=== PATIENT | female | born 1990 | race Native Hawaiian/Other Pacific Islander ===

== ENCOUNTER 2017-07-30 07:49 | Emergency (ER) | payer SELFPAY ==
[~2017-07-30] VITALS: Ht 160 cm; Wt 90.7 kg
[~2017-07-30 07:49] MED LIST: DOCU100C37 PO; IBUP-1773 PO; ONDA4TAB11 PO; PNV91TAB3 PO
--- OUTSIDE RECORDS SUMMARY | 2017-07-30 07:55 | XMS REPORT | Continuity of Care Document ---
Author Author [facility] Organization [facility] Address Unknown Phone Unavailable Allergies Active Description Code Type Severity Reaction Onset Reported/Identified Relationship to Patient Clinical Status Yes No Known Drug Allergies [id number] Drug Allergy Unknown N/A 09/23/2015 Medications There is no data. Problems Date Dx Coded Attending Type Code Diagnosis Diagnosed By 07/01/2014 REAGAN OWENS, LIZA Lara Ot 729.5 07/01/2014 REAGAN OWENS, LIZA Lara Ot 734 07/01/2014 REAGAN OWENS, LIZA Lara Ot 735.0 07/01/2014 LIZA KIRK MD Ot 729.5 07/01/2014 LIZA KIRK MD Ot 734 07/01/2014 REAGAN OWENS, LIZA Lara Ot 735.0 07/14/2014 REAGAN OWENS, LIZA Lara Ot 729.5 07/14/2014 REAGAN OWENS, LIZA Lara Ot 734 07/14/2014 REAGAN OWENS, LIZA Lara Ot 735.0 02/23/2015 REAGAN OWENS, LIZA Lara Ot 729.5 02/23/2015 REAGAN OWENS, LIZA Lara Ot 734 02/23/2015 REAGAN OWENS, LIZA Lara Ot 735.0 03/02/2015 REAGAN OWENS, LIZA Lara Ot 625.9 05/07/2015 REAGAN OWENS, LIZA Lara Ot 729.5 05/07/2015 REAGAN OWENS, LIZA Lara Ot 734 05/07/2015 REAGAN OWENS, LIZA Lara Ot 735.0 05/07/2015 REAGAN OWENS, LIZA Lara Ot 625.9 05/11/2015 REAGAN OWENS, LIZA Lara Ot 729.5 05/11/2015 REAGAN OWENS, LIZA Lara Ot 734 05/11/2015 REAGAN OWENS, LIZA Lara Ot 735.0 05/11/2015 REAGAN OWENS, LIZA Lara Ot 625.9 06/01/2015 REAGAN OWENS, LIZA Lara Ot 625.9 06/01/2015 REAGAN OWENS, LIZA Lara Ot Z34.90 07/01/2015 REAGAN OWENS, LIZA Lara Ot 625.9 09/25/2015 REAGAN OWENS, LIZA Lara Ot 729.5 09/25/2015 REAGAN OWENS, LIZA Lara Ot 734 09/25/2015 REAGAN OWENS, LIZA Lara Ot 735.0 09/25/2015 LIZA KIRK MD Ot 625.9 09/25/2015 LIZA KIRK MD Ot Z34.90 09/25/2015 LIZA KIRK MD Ot O36.63X0 MATERNAL CARE FOR EXCESS GROWTH, T 09/25/2015 REAGAN OWENS, LIZA Lara Ot O66.0 OBSTRUCTED LABOR DUE TO SHOULDER DYSTOCI 09/25/2015 REAGAN OWENS, LIZA Lara Ot Z37.0 SINGLE LIVE 09/25/2015 REAGAN OWENS, LIZA Lara Ot Z3A.40 40 WEEKS GESTATION OF 10/13/2015 LIZA KIRK MD Ot 729.5 10/13/2015 LIZA KIRK MD Ot 734 10/13/2015 LIZA KIRK MD Ot 735.0 10/13/2015 LIZA KIRK MD Ot 625.9 10/13/2015 LIZA KIRK MD Ot Z34.90 01/24/2016 LIZA KIRK MD Ot 729.5 PAIN IN LIMB 01/24/2016 REAGAN OWENS, LIZA Lara Ot 734 FLAT FOOT 01/24/2016 LIZA KIRK MD Ot 735.0 HALLUX VALGUS 01/24/2016 REAGAN OWENS, LIZA Lara Ot 625.9 FEM GENITAL SYMPTOMS NOS 01/24/2016 LIZA KIRK MD Ot Z34.90 ENCNTR FOR SUPRVSN OF NORMAL , 03/08/2016 LIZA KIRK MD Ot Z34.90 ENCNTR FOR SUPRVSN OF NORMAL , 07/11/2016 LIZA KIRK MD Ot 729.5 PAIN IN LIMB 07/11/2016 LIZA KIRK MD Ot 734 FLAT FOOT 07/11/2016 LIZA KIRK MD Ot 735.0 HALLUX VALGUS 07/11/2016 LIZA KIRK MD Ot 625.9 FEM GENITAL SYMPTOMS NOS 07/11/2016 LIZA KIRK MD Ot Z34.90 ENCNTR FOR SUPRVSN OF NORMAL , 07/11/2016 GHISLAINE CLAYTON MD Ot R10.13 EPIGASTRIC PAIN 07/11/2016 GHISLAINE CLAYTON MD Ot R11.2 NAUSEA WITH VOMITING, UNSPECIFIED 07/11/2016 LIZA KIRK MD Ot 729.5 PAIN IN LIMB 07/11/2016 LIZA KIRK MD Ot 734 FLAT FOOT 07/11/2016 LIZA KIRK MD Ot 735.0 HALLUX VALGUS 07/11/2016 LIZA KIRK MD Ot 625.9 FEM GENITAL SYMPTOMS NOS 07/11/2016 LIZA KIRK MD Ot Z34.90 ENCNTR FOR SUPRVSN OF NORMAL , 07/13/2016 GHISLAINE CLAYTON MD Ot R10.13 EPIGASTRIC PAIN 07/13/2016 GHISLAINE CLAYTON MD Ot R11.2 NAUSEA WITH VOMITING, UNSPECIFIED Procedures Code Description Performed By Performed On [id number] DIVISION OF FEMALE PERINEUM, EXTERNAL AP 09/25/2015 [id number] EXTRACTION OF POC, LOW FORCEPS, VIA OPEN 09/25/2015 Results Test Result Range Complete blood count (CBC) with automated white blood cell (WBC) differential - 07/11/16 18:27 Blood leukocytes automated count (number/volume) 6.6 10*3/uL 4.3-11.0 Blood erythrocytes automated count (number/volume) 4.52 10*6/uL 4.35-5.85 Venous blood hemoglobin measurement (mass/volume) 13.4 g/dL 11.5-16.0 Blood hematocrit (volume fraction) 40 % 35-52 Automated erythrocyte mean corpuscular volume 89 [foz_us] 80-99 Automated erythrocyte mean corpuscular hemoglobin (mass per erythrocyte) 30 pg 25-34 Automated erythrocyte mean corpuscular hemoglobin concentration measurement ( mass/volume) 33 g/dL 32-36 Automated erythrocyte distribution width ratio 12.6 % 10.0-14.5 Automated blood platelet count (count/volume) 292 10*3/uL 130-400 Automated blood platelet mean volume measurement 10.1 [foz_us] 7.4-10.4 Automated blood neutrophils/100 leukocytes 68 % 42-75 Automated blood lymphocytes/100 leukocytes 17 % 12-44 Blood monocytes/100 leukocytes 13 % 0-12 Automated blood eosinophils/100 leukocytes 2 % 0-10 Automated blood basophils/100 leukocytes 0 % 0-10 Blood neutrophils automated count (number/volume) 4.5 10*3 1.8-7.8 Blood lymphocytes automated count (number/volume) 1.1 10*3 1.0-4.0 Blood monocytes automated count (number/volume) 0.9 10*3 0.0-1.0 Automated eosinophil count 0.1 10*3/uL 0.0-0.3 Automated blood basophil count (count/volume) 0.0 10*3/uL 0.0-0.1 Serum or plasma choriogonadotropin ( test) detection - 07/11/16 18:27 Serum or plasma choriogonadotropin ( test) detection NEGATIVE NEGATIVE Comprehensive metabolic panel - 07/11/16 18:27 Serum or plasma sodium measurement (moles/volume) 138 mmol/L 135-145 Serum or plasma potassium measurement (moles/volume) 3.6 mmol/L 3.6-5.0 Serum or plasma chloride measurement (moles/volume) 106 mmol/L 98-107 Carbon dioxide 22 mmol/L 21-32 Serum or plasma anion gap determination (moles/volume) 10 mmol/L 5-14 Serum or plasma urea nitrogen measurement (mass/volume) 9 mg/dL 7-18 Serum or plasma creatinine measurement (mass/volume) 0.69 mg/dL 0.60-1.30 Serum or plasma urea nitrogen/creatinine mass ratio 13 NRG Serum or plasma creatinine measurement with calculation of estimated glomerular filtration rate > NRG Serum or plasma glucose measurement (mass/volume) 90 mg/dL 70-105 Serum or plasma calcium measurement (mass/volume) 8.7 mg/dL 8.5-10.1 Serum or plasma total bilirubin measurement (mass/volume) 0.8 mg/dL 0.1-1.0 Serum or plasma alkaline phosphatase measurement (enzymatic activity/volume) 78 U/L 40-136 Serum or plasma aspartate aminotransferase measurement (enzymatic activity/ volume) 17 U/L 5-34 Serum or plasma alanine aminotransferase measurement (enzymatic activity/volume ) 16 U/L 0-55 Serum or plasma protein measurement (mass/volume) 6.9 g/dL 6.4-8.2 Serum or plasma albumin measurement (mass/volume) 4.2 g/dL 3.2-4.5 Lipase - 07/11/16 18:27 Lipase 11 U/L 8-78 Encounters ACCT No. Visit Date/Time Discharge Status Pt. Type Provider Facility Loc./Unit Complaint [id number] 07/11/2016 18:09:00 07/11/2016 19:29:00 DIS Emergency FORREST OWENS, GHISLAINE Matias [facility] VOMITING [id number] 09/23/2015 07:43:00 09/25/2015 18:45:00 DIS Inpatient LIZA KIRK MD [facility] LDRP INDUCTION [id number] 05/11/2015 12:04:00 05/11/2015 23:59:59 CLS Outpatient LIZA KIRK MD [facility] RAD SURVEY [id number] 02/23/2015 13:19:00 02/23/2015 23:59:59 CLS Outpatient LIZA KIRK MD [facility] RAD PELVIC/VAGINAL PAIN [id number] 04/25/2014 11:45:00 04/25/2014 23:59:59 CLS Outpatient LIZA KIRK MD [facility] RAD RT FIBUAL, RT ANKLE, RT FOOT WITH SWELLING [id number] 07/30/2017 07:52:00 ACT Emergency KOKO OWENS, GENOVEVA Granado [facility] ER ABD PAIN
[2017-07-30 08:15] LABS: BILIRUBIN,URINE NEGATIVE (NEGATIVE); CLARITY,URINE CLEAR; COLOR,URINE YELLOW; GLUCOSE, URINE (UA) NEGATIVE (NEGATIVE); KETONES,URINE NEGATIVE (NEGATIVE); LEUKOCYTE ESTERASE ,URINE 3+ (NEGATIVE); NITRITE,URINE NEGATIVE (NEGATIVE); PH,URINE 5 (5-9); PROTEIN,URINE 2+ (NEGATIVE); UROBILINOGEN,URINE NORMAL (NORMAL)
[2017-07-30] MEDS ORDERED: ONDANSETRON 4 MG (ZOFRAN) ORAL DISSOLVE TAB SL ONE (08:15)
[2017-07-30] MEDS ORDERED: ANTACID SUSP 30 ML UDC (MYLANTA) PO ONE (08:15)
[2017-07-30] MEDS ORDERED: LIDOCAINE 2% VISCOUS 15 ML UDC PO ONE (08:15)
[2017-07-30 08:33] LABS: BACTERIA,URINE LARGE /HPF; RBC,URINE 50-100 /HPF; WBC,URINE 50-100 /HPF
[2017-07-30 09:25] LABS: BASOPHILS % (AUTO) 0 % (0-10); EOSINOPHILS # (AUTO) 0.1 10^3/uL (0.0-0.3); EOSINOPHILS % (AUTO) 1 % (0-10); HEMATOCRIT 41 % (35-52); HEMOGLOBIN 13.8 G/DL (11.5-16.0); LYMPHOCYTES # (AUTO) 0.9 X 10^3 (1.0-4.0); LYMPHOCYTES % (AUTO) 9 % (12-44); MEAN CORPUSCULAR HEMOGLOBIN 30 PG (25-34); MEAN CORPUSCULAR HGB CONC 34 G/DL (32-36); MEAN CORPUSCULAR VOLUME 88 FL (80-99); MEAN PLATELET VOLUME 9.9 FL (7.4-10.4); MONOCYTES # (AUTO) 0.5 X 10^3 (0.0-1.0); MONOCYTES % (AUTO) 5 % (0-12); NEUTROPHILS # (AUTO) 9.2 X 10^3 (1.8-7.8); NEUTROPHILS % (AUTO) 86 % (42-75); PLATELET COUNT 283 10^3/uL (130-400); RED BLOOD COUNT 4.67 10^6/uL (4.35-5.85); RED CELL DISTRIBUTION WIDTH 12.8 % (10.0-14.5); WHITE BLOOD COUNT 10.7 10^3/uL (4.3-11.0)
--- NOTE | 2017-07-30 09:28 | ED Abdominal Pain ---
General Chief Complaint: Abdominal/GI Problems Stated Complaint: ABD PAIN Nursing Triage Note: ARRIVED VIA AMB TO ROOM 08. COMPLAINS OF EPIGASTRIC PAIN STARTING THIS AM. 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 She denies any nausea, vomiting, diarrhea, or constipation. The pain is not changed by anything in particular. The epigastrium is tender to palpation. She has not taken any medications. She had a similar episode with associated nausea and vomiting on July 11. She has been afebrile. She denies as she is currently having menstrual bleeding and she has a contraceptive implant. She denies any urinary symptoms. Allergies and Home Medications Allergies Coded Allergies: No Known Drug Allergies (Unverified , 09/23/15) Home Medications Cephalexin 500 Mg Capsule, 500 MG PO QID, #28 Prescribed by: GENOVEVA MONTEMAYOR on 07/30/17 1401 Hydrocodone/Acetaminophen 1 Each Tablet, 1 EACH PO Q6H PRN for PAIN-MODERATE TO SEVERE, #8 Prescribed by: GENOVEVA MONTEMAYOR on 07/30/17 1409 Omeprazole 20 Mg Tablet.dr, 20 MG PO BID, #60 Prescribed by: GENOVEVA MONTEMAYOR on 07/30/17 1401 Review of Systems Constitutional: no symptoms reported EENTM: No Symptoms Reported Respiratory: No Symptoms Reported Cardiovascular: No Symptoms Reported Gastrointestinal: See HPI Genitourinary: No Symptoms Reported Musculoskeletal: no symptoms reported Skin: no symptoms reported Psychiatric/Neurological: No Symptoms Reported Endocrine: No Symptoms Reported Hematologic/Lymphatic: No Symptoms Reported Past Amjkfsi-Dxbluq-Ffqagx Hx Patient Social History Recent Foreign Travel: No Contact w/Someone Who Travel: No Recent Infectious Disease Expo: No Recent Hopitalizations: No Immunizations Up To Date Tetanus Booster (TDap): More than 5yrs PED Vaccines UTD: Yes Surgeries History of Surgeries: Yes ( control implant left upper arm) Respiratory History of Respiratory Disorde: No Cardiovascular History of Cardiac Disorders: No Neurological History of Neurological Disord: No Reproductive System Hx Reproductive Disorders: No Sexually Transmitted Disease: No HIV/AIDS: No Female Reproductive Disorders: Denies Gastrointestinal History of Gastrointestinal Di: No Musculoskeletal History of Musculoskeletal Dis: No Endocrine History of Endocrine Disorders: No HEENT Loss of Vision: Denies Hearing Impairment: Denies Cancer History of Cancer: No Psychosocial History of Psychiatric Problem: No Integumentary History of Skin or Integumenta: No Blood Transfusions History of Blood Disorders: No Adverse Reaction to a Blood Tr: No Family Medical History Significant Family History: No Pertinent Family Hx Family Medial History: Patient reports no known family medical history. Physical Exam Vital Signs VS - Last 72 Hours, by Label 07/30/17 07/30/17 07:50 14:18 Temp 97.8 Pulse 88 86 Resp 18 18 B/P (MAP) 100/80 (87) Pulse Ox 99 100 O2 Delivery Room Air Capillary Refill : Less Than 3 Seconds General Appearance: WD/WN, no apparent distress HEENT: normal ENT inspection Neck: normal inspection Respiratory: lungs clear, normal breath sounds, no respiratory distress, no accessory muscle use Cardiovascular: regular rate, rhythm, no edema, no murmur Gastrointestinal: normal bowel sounds, soft, No distended, No guarding, No rebound, tenderness (isolated to the epigastrium, mild) Extremities: normal inspection, no pedal edema Neurologic/Psychiatric: statistical assistant II-XII nml as tested, no motor/sensory deficits, alert, normal mood/affect, oriented x 3 Skin: normal color, warm/dry Progress/Results/Core Measures Results/Orders Lab Results Laboratory Tests Test 07/30/17 08:08 07/30/17 09:15 Range/Units Urine Color YELLOW Urine Clarity CLEAR Urine pH 5 5-9 Urine Specific [place] 1.025 H 1.016-1.022 Urine Protein 2+ H NEGATIVE Urine Glucose (UA) NEGATIVE NEGATIVE Urine Ketones NEGATIVE NEGATIVE Urine Nitrite NEGATIVE NEGATIVE Urine Bilirubin NEGATIVE NEGATIVE Urine Urobilinogen NORMAL NORMAL MG/DL Urine Leukocyte Esterase 3+ H NEGATIVE Urine RBC (Auto) 5+ H NEGATIVE Urine RBC 50-100 H /HPF Urine WBC 50-100 H /HPF Urine Squamous Epithelial Cells 5-10 /HPF Urine Crystals NONE /LPF Urine Bacteria LARGE H /HPF Urine Casts NONE /LPF Urine Mucus SMALL H /LPF Urine Culture Indicated YES White Blood Count 10.7 4.3-11.0 10^3/uL Red Blood Count 4.67 4.35-5.85 10^6/uL Hemoglobin 13.8 11.5-16.0 G/DL Hematocrit 41 35-52 % Mean Corpuscular Volume 88 80-99 FL Mean Corpuscular Hemoglobin 30 25-34 PG Mean Corpuscular Hemoglobin Concent 34 32-36 G/DL Red Cell Distribution Width 12.8 10.0-14.5 % Platelet Count 283 130-400 10^3/uL Mean Platelet Volume 9.9 7.4-10.4 FL Neutrophils (%) (Auto) 86 H 42-75 % Lymphocytes (%) (Auto) 9 L 12-44 % Monocytes (%) (Auto) 5 0-12 % Eosinophils (%) (Auto) 1 0-10 % Basophils (%) (Auto) 0 0-10 % Neutrophils # (Auto) 9.2 H 1.8-7.8 X 10^3 Lymphocytes # (Auto) 0.9 L 1.0-4.0 X 10^3 Monocytes # (Auto) 0.5 0.0-1.0 X 10^3 Eosinophils # (Auto) 0.1 0.0-0.3 10^3/uL Basophils # (Auto) 0.0 0.0-0.1 10^3/uL Neutrophils % (Manual) 86 % Lymphocytes % (Manual) 8 % Monocytes % (Manual) 4 % Eosinophils % (Manual) 1 % Band Neutrophils 1 % Blood Morphology Comment NORMAL Sodium Level 138 135-145 MMOL/L Potassium Level 4.1 3.6-5.0 MMOL/L Chloride Level 108 H 98-107 MMOL/L Carbon Dioxide Level 22 21-32 MMOL/L Anion Gap 8 5-14 MMOL/L Blood Urea Nitrogen 14 7-18 MG/DL Creatinine 0.69 0.60-1.30 MG/DL Estimat Glomerular Filtration Rate > 60 BUN/Creatinine Ratio 20 Glucose Level 120 H 70-105 MG/DL Calcium Level 9.0 8.5-10.1 MG/DL Total Bilirubin 0.4 0.1-1.0 MG/DL Aspartate Amino Transf (AST/SGOT) 14 5-34 U/L Alanine Aminotransferase (ALT/SGPT) 19 0-55 U/L Alkaline Phosphatase 80 40-136 U/L Total Protein 7.2 6.4-8.2 GM/DL Albumin 4.1 3.2-4.5 GM/DL Lipase 20 8-78 U/L Serum Test, Qualitative NEGATIVE NEGATIVE My Orders Orders - BRUGEMANN,GENOVEVA T MD Ua Culture If Indicated (07/30/17 07:56) Ondansetron Oral Dissolve Tab (Zofran (07/30/17 08:15) Lidocaine 2% Viscous 15 Ml (Xylocaine Vi (07/30/17 08:15) Antacid Suspension (Mylanta Suspension (07/30/17 08:15) Urine Culture (07/30/17 08:08) Cbc With Automated Diff (07/30/17 08:47) Comprehensive Metabolic Panel (07/30/17 08:47) Lipase (07/30/17 08:47) Saline Lock/Iv-Start (07/30/17 08:47) Hcg,Qualitative Serum (07/30/17 08:47) Ketorolac Injection (Toradol Injection) (07/30/17 09:30) Manual Differential (07/30/17 09:15) Ceftriaxone Injection (Rocephin Injectio (07/30/17 09:30) Fentanyl Injection (Sublimaze Injection (07/30/17 11:00) Us Gallbladder 67020 (07/30/17 11:03) Ct Abdomen/Pelvis W (07/30/17 12:03) Iohexol Injection (Omnipaque 350 Mg/Ml 1 (07/30/17 13:00) Sodium Chloride Flush (Catheter Flush Sy (07/30/17 13:00) Ns (Ivpb) (Sodium Chloride 0.9% Ivpb Bag (07/30/17 13:00) Pharmacy Communication (Pharmacy Communi (07/30/17 12:50) Medications Given in ED Vital Signs/I&O Vital Sign - Last 12Hours 07/30/17 07/30/17 07:50 14:18 Temp 97.8 Pulse 88 86 Resp 18 18 B/P (MAP) 100/80 (87) Pulse Ox 99 100 O2 Delivery Room Air Blood Pressure Mean: 87 Point of Care Testing Urine -Bedside: Negative Progress Note #1: Time: 09:27 Progress Note Patient had a trial of Zofran and GI cocktail. She reports her pain was unchanged. She rated the pain as 8/10 before and after the GI cocktail. Patient was re-interviewed and examined her with automotive light mechanic on the language line. She is still found to have isolated epigastric tenderness. Labs have been ordered. Toradol was ordered for pain. Pepcid was additionally ordered. Imaging studies may be ordered pending lab studies. Patient additionally was found to have a urinary tract infection. A dose of Rocephin will be administered. Progress Note #2: Time: 12:05 Progress Note Patient was found to have a potential liver mass on ultrasound. A triphasic CT was recommended by the radiologist and was ordered. Patient's pain was additionally treated with fentanyl. Language line was used again to obtain more information and provide an update to the patient. Progress Note #3: Progress Note CT revealed no abnormalities to correlate with the ultrasound findings. Patient 's pain decreased to 1/2 by the time of dismissal. Language line was again used to review findings and discharge instructions. Diagnostic Imaging Diagonstic Imaging: Ultrasound Plain Films/CT/US/NM/MRI: abdomen Comments NAME: TRACY WILLETT [facility] REC#: [id number] PT STATUS: REG ER : 1990 PHYSICIAN: GENOVEVA SUTHERLAND MD ADMIT DATE: 07/30/17/ER Signed Date of Exam: 07/30/17 US GALLBLADDER [id number] PROCEDURE: US Gallbladder. TECHNIQUE: Multiple real-time grayscale images were obtained over the right upper quadrant in various projections. INDICATION: Right upper quadrant abdominal pain, epigastric pain. COMPARISON: None. FINDINGS: There is area of decreased echogenicity in the right hepatic lobe of liver. This is likely focal fatty sparing. Nonetheless, followup CT imaging with three-phase contrast is recommended to exclude neoplasm. This may be done on nonemergent basis. There was no intrahepatic biliary duct dilatation. The gallbladder is normal. The common bile duct is poorly visualized due to overlying bowel gas. The pancreas is poorly visualized. Right kidney normal. There is no ascites. IMPRESSION: 1. No cholelithiasis or cholecystitis. 2. Questionable liver mass versus focal fatty sparing. Recommend three-phase CT imaging. 3. No ascites. Dictated by: Dictated on workstation # [id number] Dict: 07/30/17 1212 Trans: 07/30/17 1224 Interpreted by: RANI MANNING Electronically signed by: RANI MANNING 07/30/17 1224 Diagonstic Imaging: CT Plain Films/CT/US/NM/MRI: abdomen, pelvis Comments CT abdomen and pelvis viewed by me and report reviewed. See report below: NAME: TRACY WILLETT REC#: [id number] PT STATUS: REG ER : 1990 PHYSICIAN: GENOVEVA SUTHERLAND MD ADMIT DATE: 07/30/17/ER Signed Date of Exam: 07/30/17 CT ABDOMEN/PELVIS W PROCEDURE: CT abdomen and pelvis with contrast. TECHNIQUE: Multiple contiguous axial images were obtained through the abdomen and pelvis after administration of intravenous contrast. INDICATION: Abdominal pain. Abnormal liver ultrasound. COMPARISON: Right upper quadrant ultrasound 07/30/2017. FINDINGS: Examination is limited by lack of a noncontrast phase and movement on the arterial phase which cuts off the dome of the liver. Given the limitations, there is no mass identified in the liver. The prior findings on ultrasound likely represent focal fatty infiltration. No intrahepatic or extrahepatic biliary ductal dilatation. The gallbladder is negative. The pancreas, spleen, adrenals, kidneys, collecting systems and appendix are negative. No free intraperitoneal air or fluid. No lymphadenopathy. There is diffuse fluid-filled distention of the colon and several loops of small bowel. No acute osseous findings. IMPRESSION: 1. No hepatic mass or fluid collection given limitations of this exam described above. 2. Diffuse fluid-filled distention of the colon and several loops of small bowel may be related to an infectious/inflammatory process. Dictated by: Dictated on workstation # [id number] Dict: 07/30/17 1255 Trans: 07/30/17 1530 Interpreted by: JUSTYNA AGUILAR MD Electronically signed by: JUSTYNA AGUILAR MD 07/30/17 1530 Departure Impression Impression: Primary Impression: Epigastric pain Additional Impressions: Liver mass Urinary tract infection Qualified Codes: N39.0 - Urinary tract infection, site not specified Disposition: HOME, SELF-CARE Condition: Improved Departure-Patient Inst. Decision time for Depature: 13:58 Referrals: ALEJANDRA ACUÑA MD (PCP/Family) Primary Care Physician Patient Instructions: Acute Abdomen (Belly Pain), Adult (DC), Urinary Tract Infection, Adult (DC) Add. Discharge Instructions: The possible mass seen on ultrasound was not seen on your CT scan. This likely represents a harmless process. However, it is very important that you follow- up with your primary care provider to review these studies further. Drink plenty of clear liquids and gradually advance your diet with small quantities of bland food as tolerated. Complete your antibiotics for bladder infection as prescribed. Take your antacid (omeprazole) medication as prescribed. Follow-up with your primary care provider mid or late next week to review your urine culture results. Use your pain medication as prescribed. Return to the emergency room if symptoms worsen. All discharge instructions reviewed with patient and/or family. Voiced understanding. Scripts Hydrocodone/Acetaminophen (Hydrocodone-Acetamin 5-325 mg) 1 Each Tablet 1 EACH PO Q6H Y for PAIN-MODERATE TO SEVERE, #8 TAB Prov: GENOVEVA SUTHERLAND MD 07/30/17 Cephalexin (Keflex) 500 Mg Capsule 500 MG PO QID, #28 CAP Prov: GENOVEVA SUTHERLAND MD 07/30/17 Omeprazole (Omeprazole) 20 Mg Tablet. 20 MG PO BID, #60 TAB Prov: GENOVEVA SUTHERLAND MD 07/30/17 Copy Copies To 1: ALEJANDRA ACUÑA MD, JOSHUA T MD Jul 30, 2017 09:28
[2017-07-30] MEDS ORDERED: cefTRIAXone INJECTION 1,000 MG in NS (IVPB) 50 ML IV ONE (09:30)
[2017-07-30] MEDS ORDERED: KETOROLAC 30 MG/ML VIAL IVP ONE (09:30)
[2017-07-30 09:47] LABS: ALANINE AMINOTRANSFERASE 19 U/L (0-55); ALBUMIN 4.1 GM/DL (3.2-4.5); ALKALINE PHOSPHATASE 80 U/L (40-136); BILIRUBIN,TOTAL 0.4 MG/DL (0.1-1.0); BUN/CREATININE RATIO 20; CARBON DIOXIDE 22 MMOL/L (21-32); CHLORIDE 108 MMOL/L (98-107); CREATININE SERUM 0.69 MG/DL (0.60-1.30); GFR ESTIMATED > 60; GLUCOSE 120 MG/DL (70-105); LIPASE 20 U/L (8-78); POTASSIUM 4.1 MMOL/L (3.6-5.0); SODIUM 138 MMOL/L (135-145); TOTAL PROTEIN 7.2 GM/DL (6.4-8.2)
[2017-07-30 09:55] LABS: BAND NEUTROPHILS 1 %; EOSINOPHILS % (MANUAL) 1 %; LYMPHOCYTES % (MANUAL) 8 %; MONOCYTES % (MANUAL) 4 %; NEUTROPHILS % (MANUAL) 86 %; RBC MORPH NORMAL
[2017-07-30] MEDS ORDERED: fentaNYL INJECTION 100 MCG/2 ML AMP IVP ONE (11:00)
--- NOTE | 2017-07-30 12:23 | Diagnostic Imaging Report ---
PROCEDURE: US Gallbladder. TECHNIQUE: Multiple real-time grayscale images were obtained over the right upper quadrant in various projections. INDICATION: Right upper quadrant abdominal pain, epigastric pain. COMPARISON: None. FINDINGS: There is area of decreased echogenicity in the right hepatic lobe of liver. This is likely focal fatty sparing. Nonetheless, followup CT imaging with three-phase contrast is recommended to exclude neoplasm. This may be done on nonemergent basis. There was no intrahepatic biliary duct dilatation. The gallbladder is normal. The common bile duct is poorly visualized due to overlying bowel gas. The pancreas is poorly visualized. Right kidney normal. There is no ascites. IMPRESSION: 1. No cholelithiasis or cholecystitis. 2. Questionable liver mass versus focal fatty sparing. Recommend three-phase CT imaging. 3. No ascites. Dictated by: Dictated on workstation # [id number]
[2017-07-30] MEDS ORDERED: NS 100 ML (IVPB) BAG IV ONE (13:00)
[2017-07-30] MEDS ORDERED: IOHEXOL 350 MG/ML 100 ML (OMNIPAQUE 350) VIAL IV ONE (13:00)
[2017-07-30] MEDS ORDERED: CATHETER FLUSH 10 ML SYR IV PRN (13:00)
--- NOTE | 2017-07-30 13:11 | Diagnostic Imaging Report ---
PROCEDURE: CT abdomen and pelvis with contrast. TECHNIQUE: Multiple contiguous axial images were obtained through the abdomen and pelvis after administration of intravenous contrast. INDICATION: Abdominal pain. Abnormal liver ultrasound. COMPARISON: Right upper quadrant ultrasound 07/30/2017. FINDINGS: Examination is limited by lack of a noncontrast phase and movement on the arterial phase which cuts off the dome of the liver. Given the limitations, there is no mass identified in the liver. The prior findings on ultrasound likely represent focal fatty infiltration. No intrahepatic or extrahepatic biliary ductal dilatation. The gallbladder is negative. The pancreas, spleen, adrenals, kidneys, collecting systems and appendix are negative. No free intraperitoneal air or fluid. No lymphadenopathy. There is diffuse fluid-filled distention of the colon and several loops of small bowel. No acute osseous findings. IMPRESSION: 1. No hepatic mass or fluid collection given limitations of this exam described above. 2. Diffuse fluid-filled distention of the colon and several loops of small bowel may be related to an infectious/inflammatory process. Dictated by: Dictated on workstation # [id number]
[2017-07-30] MEDS ORDERED: CEPH-507 PO (14:01)
[2017-07-30] MEDS ORDERED: OMEP20TA7 PO (14:01)
[2017-07-30] MEDS ORDERED: HYDR-3812 PO (14:09)
[2017-07-30 14:18] VITALS: BP 102/66
== END 2017-07-30 14:18 | disposition home or self-care (01) ==
LOC: EDUNIT# 07:49 → ER 07:52
DX: N39.0 Urinary tract infection, site not specified (principal); R16.0 Hepatomegaly, not elsewhere classified; Z97.5 Presence of (intrauterine) contraceptive device
CPT/HCPCS: 36415; 74177; 76705; 80053; 81000; 83690; 84703; 85007; 85027; 87088

== ENCOUNTER 2018-05-18 00:33 | Emergency (ER) | payer OTHER ==
[~2018-05-18] VITALS: Ht 165.1 cm; Wt 72.6 kg
[~2018-05-18 00:33] MED LIST changes: +CEPH-507 PO; +HYDR-3812 PO; +OMEP20TA7 PO
--- OUTSIDE RECORDS SUMMARY | 2018-05-18 01:45 | XMS REPORT | Continuity of Care Document ---
Author Author [facility] Organization [facility] Address Unknown Phone Unavailable Allergies Active Description Code Type Severity Reaction Onset Reported/Identified Relationship to Patient Clinical Status Yes No Known Drug Allergies [id number] Drug Allergy Unknown N/A 09/23/2015 Medications There [...] CLAYTON MD Ot R10.13 EPIGASTRIC PAIN 07/11/2016 GHSILAINE CLAYTON MD Ot R11.2 NAUSEA WITH VOMITING, UNSPECIFIED 07/11/2016 LIZA KIRK MD Ot 729.5 PAIN IN LIMB 07/11/2016 REAGAN OWENS, LIZA Lara Ot 734 FLAT FOOT 07/11/2016 REAGAN OWENS, LIZA Lara Ot 735.0 HALLUX VALGUS 07/11/2016 RAEGAN OWENS, LIZA J Ot 625.9 FEM GENITAL SYMPTOMS NOS 07/11/2016 LIZA KIRK MD Ot Z34.90 ENCNTR FOR SUPRVSN OF NORMAL , 07/13/2016 GHISLAINE CLAYTON MD Ot R10.13 EPIGASTRIC PAIN 07/13/2016 GHISLAINE CLAYTON MD Ot R11.2 NAUSEA WITH VOMITING, UNSPECIFIED 07/30/2017 LIZA KIRK MD Ot 729.5 PAIN IN LIMB 07/30/2017 REAGAN OWENS, LIZA J Ot 734 FLAT FOOT 07/30/2017 REAGAN OWENS, LIZA J Ot 735.0 HALLUX VALGUS 07/30/2017 REAGAN OWENS, LIZA J Ot 625.9 FEM GENITAL SYMPTOMS NOS 07/30/2017 LIZA KIRK MD Ot Z34.90 ENCNTR FOR SUPRVSN OF NORMAL , 07/30/2017 LIZA KIRK MD Ot 729.5 PAIN IN LIMB 07/30/2017 REAGAN OWENS, LIZA Lara Ot 734 FLAT FOOT 07/30/2017 REAGAN OWENS, LIZA Lara Ot 735.0 HALLUX VALGUS 07/30/2017 REAGAN OWENS, LIZA Lara Ot 625.9 FEM GENITAL SYMPTOMS NOS 07/30/2017 LIZA KIRK MD Ot Z34.90 ENCNTR FOR SUPRVSN OF NORMAL , 07/30/2017 KOKO OWENS, GENOVEVA T Ot N39.0 URINARY TRACT INFECTION, SITE NOT SPECIF 07/30/2017 GENOVEVA SUTHERLAND MD T Ot R10.13 EPIGASTRIC PAIN 07/30/2017 GENOVEVA SUTHERLAND MD T Ot R16.0 HEPATOMEGALY, NOT ELSEWHERE CLASSIFIED 07/30/2017 GENOVEVA SUTHERLAND MD T Ot Z97.5 PRESENCE OF (INTRAUTERINE) CONTRACEPTIVE 07/30/2017 LIZA KIRK MD Ot 729.5 PAIN IN LIMB 07/30/2017 REAGAN OWENS, LIZA Marco Ot 734 FLAT FOOT 07/30/2017 LIZA KIRK MD Ot 735.0 HALLUX VALGUS 07/30/2017 LIZA KIRK MD Ot 625.9 FEM GENITAL SYMPTOMS NOS 07/30/2017 LIZA KIRK MD Ot Z34.90 ENCNTR FOR SUPRVSN OF NORMAL , Procedures Code Description Performed By Performed On [id number] DIVISION OF FEMALE PERINEUM, EXTERNAL AP 09/25/2015 [id number] EXTRACTION OF POC, LOW FORCEPS, VIA OPEN [...] - 07/11/16 18:27 Lipase 11 U/L 8-78 Complete urinalysis with reflex to culture - 07/30/17 08:08 Urine color determination YELLOW NRG Urine clarity determination CLEAR NRG Urine pH measurement by test strip 5 5-9 Specific gravity of urine by test strip 1.025 1.016- 1.022 Urine protein assay by test strip, semi-quantitative 2+ NEGATIVE Urine glucose detection by automated test strip NEGATIVE NEGATIVE Erythrocytes detection in urine sediment by light microscopy 5+ NEGATIVE Urine ketones detection by automated test strip NEGATIVE NEGATIVE Urine nitrite detection by test strip NEGATIVE NEGATIVE Urine total bilirubin detection by test strip NEGATIVE NEGATIVE Urine urobilinogen measurement by automated test strip (mass/volume) NORMAL NORMAL Urine leukocyte esterase detection by dipstick 3+ NEGATIVE Automated urine sediment erythrocyte count by microscopy (number/high power field) [HPF] NR Automated urine sediment leukocyte count by microscopy (number/high power field ) [HPF] NRG Bacteria detection in urine sediment by light microscopy LARGE NRG Squamous epithelial cells detection in urine sediment by light microscopy 5-10 NRG Crystals detection in urine sediment by light microscopy NONE NRG Casts detection in urine sediment by light microscopy NONE NRG Mucus detection in urine sediment by light microscopy SMALL NRG Complete urinalysis with reflex to culture YES NRG Bacterial urine culture - 07/30/17 08:08 Bacterial urine culture [id number] NRG COLONY COUNT >100,000/ML NRG FTX;REPORTABLE PLUS, NRG FREE TEXT ENTRY 2 MIXED GRAM POSITIVES 10-100,000/ML NRG Complete blood count (CBC) with automated white blood cell (WBC) differential - 07/30/17 09:15 Blood leukocytes automated count (number/volume) 10.7 10*3/uL 4.3-11.0 Blood erythrocytes automated count (number/volume) 4.67 10*6/uL 4.35-5.85 Venous blood hemoglobin measurement (mass/volume) 13.8 g/dL 11.5-16.0 Blood hematocrit (volume fraction) 41 % 35-52 Automated erythrocyte mean corpuscular volume 88 [foz_us] 80-99 Automated erythrocyte mean corpuscular hemoglobin (mass per erythrocyte) 30 pg 25-34 Automated erythrocyte mean corpuscular hemoglobin concentration measurement ( mass/volume) 34 g/dL 32-36 Automated erythrocyte distribution width ratio 12.8 % 10.0-14.5 Automated blood platelet count (count/volume) 283 10*3/uL 130-400 Automated blood platelet mean volume measurement 9.9 [foz_us] 7.4-10.4 Automated blood neutrophils/100 leukocytes 86 % 42-75 Automated blood lymphocytes/100 leukocytes 9 % 12-44 Blood monocytes/100 leukocytes 5 % 0-12 Automated blood eosinophils/100 leukocytes 1 % 0-10 Automated blood basophils/100 leukocytes 0 % 0-10 Blood neutrophils automated count (number/volume) 9.2 10*3 1.8-7.8 Blood lymphocytes automated count (number/volume) 0.9 10*3 1.0-4.0 Blood monocytes automated count (number/volume) 0.5 10*3 0.0-1.0 Automated eosinophil count 0.1 10*3/uL 0.0-0.3 Automated blood basophil count (count/volume) 0.0 10*3/uL 0.0-0.1 Serum or plasma choriogonadotropin ( test) detection - 07/30/17 09:15 Serum or plasma choriogonadotropin ( test) detection NEGATIVE NEGATIVE Comprehensive metabolic panel - 07/30/17 09:15 Serum or plasma sodium measurement (moles/volume) 138 mmol/L 135-145 Serum or plasma potassium measurement (moles/volume) 4.1 mmol/L 3.6-5.0 Serum or plasma chloride measurement (moles/volume) 108 mmol/L 98-107 Carbon dioxide 22 mmol/L 21-32 Serum or plasma anion gap determination (moles/volume) 8 mmol/L 5-14 Serum or plasma urea nitrogen measurement (mass/volume) 14 mg/dL 7-18 Serum or plasma creatinine measurement (mass/volume) 0.69 mg/dL 0.60-1.30 Serum or plasma urea nitrogen/creatinine mass ratio 20 NRG Serum or plasma creatinine measurement with calculation of estimated glomerular filtration rate > NRG Serum or plasma glucose measurement (mass/volume) 120 mg/dL 70-105 Serum or plasma calcium measurement (mass/volume) 9.0 mg/dL 8.5-10.1 Serum or plasma total bilirubin measurement (mass/volume) 0.4 mg/dL 0.1-1.0 Serum or plasma alkaline phosphatase measurement (enzymatic activity/volume) 80 U/L 40-136 Serum or plasma aspartate aminotransferase measurement (enzymatic activity/ volume) 14 U/L 5-34 Serum or plasma alanine aminotransferase measurement (enzymatic activity/volume ) 19 U/L 0-55 Serum or plasma protein measurement (mass/volume) 7.2 g/dL 6.4-8.2 Serum or plasma albumin measurement (mass/volume) 4.1 g/dL 3.2-4.5 Lipase - 07/30/17 09:15 Lipase 20 U/L 8-78 Blood manual differential performed detection - 07/30/17 09:15 Blood monocytes/100 leukocytes 4 % NRG Manual blood segmented neutrophils/100 leukocytes 86 % NRG Blood band neutrophils/100 leukocytes 1 % NRG Manual blood lymphocytes/100 leukocytes 8 % NRG Manual eosinophils/100 leukocytes in nose 1 % NRG Blood erythrocyte morphology finding identification NORMAL NRG Encounters ACCT No. Visit Date/Time Discharge Status Pt. Type Provider Facility Loc./Unit Complaint [id number] 07/30/2017 07:52:00 07/30/2017 14:18:00 DIS Emergency KOKO OWENS, GENOVEVA Granado [facility] ER ABD PAIN [id number] 07/11/2016 18:09:00 07/11/2016 19:29:00 DIS Emergency FORREST OWENS, GHISLAINE Polly [facility] ER VOMITING [id number] 09/23/2015 07:43:00 09/25/2015 18:45:00 DIS Inpatient LIZA KIRK MD [facility] LDRP INDUCTION [id number] 05/11/2015 12:04:00 05/11/2015 23:59:59 CLS Outpatient LIZA KIRK MD [facility] RAD SURVEY [id number] 02/23/2015 13:19:00 02/23/2015 23:59:59 CLS Outpatient LIZA KIRK MD [facility] RAD PELVIC/VAGINAL PAIN [id number] 04/25/2014 11:45:00 04/25/2014 23:59:59 CLS Outpatient LIZA KIRK MD [facility] RAD RT FIBUAL, RT ANKLE, RT FOOT WITH SWELLING [id number] 05/18/2018 00:33:00 ACT Emergency AICHA SAWYER MD [facility] ER UPPER ABD PAIN
[2018-05-18] MEDS ORDERED: FAMOTIDINE 20 MG (PEPCID) TABLET PO STA (02:02)
[2018-05-18] MEDS ORDERED: NS IV 1000 ML 1,000 ML IV SCH (02:02)
[2018-05-18 02:12] LABS: BASOPHILS % (AUTO) 0 % (0-10); EOSINOPHILS # (AUTO) 0.1 10^3/uL (0.0-0.3); EOSINOPHILS % (AUTO) 1 % (0-10); HEMATOCRIT 43 % (35-52); HEMOGLOBIN 14.1 G/DL (11.5-16.0); LYMPHOCYTES # (AUTO) 1.1 X 10^3 (1.0-4.0); LYMPHOCYTES % (AUTO) 8 % (12-44); MEAN CORPUSCULAR HEMOGLOBIN 29 PG (25-34); MEAN CORPUSCULAR HGB CONC 33 G/DL (32-36); MEAN CORPUSCULAR VOLUME 88 FL (80-99); MEAN PLATELET VOLUME 10.5 FL (7.4-10.4); MONOCYTES # (AUTO) 0.5 X 10^3 (0.0-1.0); MONOCYTES % (AUTO) 4 % (0-12); NEUTROPHILS # (AUTO) 11.5 X 10^3 (1.8-7.8); NEUTROPHILS % (AUTO) 87 % (42-75); PLATELET COUNT 328 10^3/uL (130-400); RED BLOOD COUNT 4.87 10^6/uL (4.35-5.85); RED CELL DISTRIBUTION WIDTH 12.8 % (10.0-14.5); WHITE BLOOD COUNT 13.3 10^3/uL (4.3-11.0)
[2018-05-18] MEDS ORDERED: LIDOCAINE 2% VISCOUS 15 ML UDC PO ONE (02:15)
[2018-05-18] MEDS ORDERED: ONDANSETRON 4 MG/2 ML (SDV) Z0FRAN IVP ONE (02:15)
[2018-05-18] MEDS ORDERED: ANTACID SUSP 30 ML UDC (MYLANTA) PO ONE (02:15)
--- NOTE | 2018-05-18 02:19 | ED GI ---
General Chief Complaint: Abdominal/GI Problems Stated Complaint: UPPER ABD PAIN Nursing Triage Note: PT AMB TO ROOM #6 W/O DIFFICULTY. A&OX4. S/O @ SIDE. LANGUAGE LINE USED FOR TRIAGE. PT REPORTS ABD PAIN WITH N/V BEGAN YESTERDAY MORNING. REPORTS SHE HAS BEEN UNABLE TO KEEP MUCH DOWN AND HAS VOMITED X4. PT REPORTS MEDIAL ABD PAIN. DENIES FEVER AND CHILLS. REPORTS YESTERDAY MORNING SHE ATE PORK AND SHE BELIVES THE PORK IS RESPONSIBLE FOR HER SYMPTOMS. REPORTS TO HAVE TAKEN X1 500 MG AMPICILINA. LBM TODAY. BOWEL SOUNDS ACTIVE IN ALL FOUR QUARDANTS. Sepsis Screen: No Definite Risk Source of Information: Patient Exam Limitations: Language Barrier (ESL; Language line) History of Present Illness Date Seen by Provider: May 18, 2018 Time Seen by Provider: 02:05 Initial Comments Patient presents to ER by private conveyance with chief complaint that yesterday morning she had some pork for breakfast and after that started having some pain in her epigastric region nausea and vomiting. She says it comes and goes but has not relented completely. Does not respond to Tylenol or Motrin. She 's not had any fevers or chills. She has not seen anybody for it yet. She has an Implanon and her period is currently going. Allergies and Home Medications Allergies Coded Allergies: No Known Drug Allergies (Unverified , 09/23/15) Home Medications Cephalexin 500 Mg Capsule, 500 MG PO QID Prescribed by: GENOVEVA MONTEMAYOR on 07/30/17 1401 Hydrocodone/Acetaminophen 1 Each Tablet, 1 EACH PO Q6H PRN for PAIN-MODERATE TO SEVERE Prescribed by: GENOVEVA MONTMEAYOR on 07/30/17 1409 Omeprazole 20 Mg Tablet.dr, 20 MG PO BID Prescribed by: GENOVEVA MONTEMAYOR on 07/30/17 1401 Patient Home Medication List Home Medication List Reviewed: Yes Review of Systems Review of Systems Constitutional: No chills, No diaphoresis EENTM: No Blurred Vision, No Double Vision Respiratory: Denies Cough, Denies Orthopnea Cardiovascular: Denies Chest Pain, Denies Irregular Heart Rate Gastrointestinal: Abdominal Pain; Denies Constipated, Denies Diarrhea; Nausea, Vomiting Genitourinary: Denies Burning, Denies Discharge Musculoskeletal: back pain (chronic); No joint pain Past Apsuraa-Ibsmbi-Ksxrze Hx Patient Social History Alcohol Use: Denies Use Recreational Drug Use: No Smoking Status: Never a Smoker Recent Foreign Travel: No Contact w/Someone Who Travel: No Recent Infectious Disease Expo: No Recent Hopitalizations: No Immunizations Up To Date Tetanus Booster (TDap): More than 5yrs PED Vaccines UTD: Yes Past Medical History Surgeries: Yes ( control implant left upper arm) Respiratory: No Cardiac: No Neurological: No Reproductive Disorders: No Female Reproductive Disorders: Denies Sexually Transmitted Disease: No HIV/AIDS: No Gastrointestinal: No Musculoskeletal: No Endocrine: No Loss of Vision: Denies Hearing Impairment: Denies Cancer: No Psychosocial: No Integumentary: No Blood Disorders: No Adverse Reaction/Blood Tranf: No Family Medical History Patient reports no known family medical history. No Pertinent Family Hx Physical Exam Vital Signs Vital Signs - First Documented 05/18/18 01:37 Temp 97.6 Pulse 72 Resp 16 B/P (MAP) 106/71 (83) Pulse Ox 72 O2 Delivery Room Air Capillary Refill : Less Than 3 Seconds Height/Weight/BMI Height: 5'5.00" Weight: 160lbs. oz. 72.334384to; 40.92 BMI Method:Stated General Appearance: WD/WN, no apparent distress HEENT: PERRL/EOMI, normal ENT inspection, pharynx normal Respiratory: chest non-tender, lungs clear, normal breath sounds, no respiratory distress, no accessory muscle use Cardiovascular: normal peripheral pulses, regular rate, rhythm Peripheral Pulses: 2+ Radial Pulses (R), 2+ Radial Pulses (L) Gastrointestinal: normal bowel sounds, soft, tenderness Extremities: normal inspection, no pedal edema, normal capillary refill Progress/Results/Core Measures Results/Orders Lab Results Laboratory Tests Test 05/18/18 01:50 05/18/18 02:16 Range/Units White Blood Count 13.3 H 4.3-11.0 10^3/uL Red Blood Count 4.87 4.35-5.85 10^6/uL Hemoglobin 14.1 11.5-16.0 G/DL Hematocrit 43 35-52 % Mean Corpuscular Volume 88 80-99 FL Mean Corpuscular Hemoglobin 29 25-34 PG Mean Corpuscular Hemoglobin Concent 33 32-36 G/DL Red Cell Distribution Width 12.8 10.0-14.5 % Platelet Count 328 130-400 10^3/uL Mean Platelet Volume 10.5 H 7.4-10.4 FL Neutrophils (%) (Auto) 87 H 42-75 % Lymphocytes (%) (Auto) 8 L 12-44 % Monocytes (%) (Auto) 4 0-12 % Eosinophils (%) (Auto) 1 0-10 % Basophils (%) (Auto) 0 0-10 % Neutrophils # (Auto) 11.5 H 1.8-7.8 X 10^3 Lymphocytes # (Auto) 1.1 1.0-4.0 X 10^3 Monocytes # (Auto) 0.5 0.0-1.0 X 10^3 Eosinophils # (Auto) 0.1 0.0-0.3 10^3/uL Basophils # (Auto) 0.0 0.0-0.1 10^3/uL Sodium Level 138 135-145 MMOL/L Potassium Level 4.0 3.6-5.0 MMOL/L Chloride Level 105 98-107 MMOL/L Carbon Dioxide Level 20 L 21-32 MMOL/L Anion Gap 13 5-14 MMOL/L Blood Urea Nitrogen 14 7-18 MG/DL Creatinine 0.82 0.60-1.30 MG/DL Estimat Glomerular Filtration Rate > 60 BUN/Creatinine Ratio 17 Glucose Level 157 H 70-105 MG/DL Calcium Level 10.5 H 8.5-10.1 MG/DL Corrected Calcium 8.5-10.1 MG/DL Magnesium Level 2.3 1.8-2.4 MG/DL Total Bilirubin 0.7 0.1-1.0 MG/DL Aspartate Amino Transf (AST/SGOT) 18 5-34 U/L Alanine Aminotransferase (ALT/SGPT) 26 0-55 U/L Alkaline Phosphatase 78 40-136 U/L C-Reactive Protein High Sensitivity 1.75 H 0.00-0.50 MG/DL Total Protein 8.5 H 6.4-8.2 GM/DL Albumin 4.9 H 3.2-4.5 GM/DL Urine Color RED H Urine Clarity BLOODY H Urine pH 7 5-9 Urine Specific [place] 1.015 L 1.016-1.022 Urine Protein 2+ H NEGATIVE Urine Glucose (UA) NEGATIVE NEGATIVE Urine Ketones NEGATIVE NEGATIVE Urine Nitrite NEGATIVE NEGATIVE Urine Bilirubin NEGATIVE NEGATIVE Urine Urobilinogen 1 NORMAL MG/DL Urine Leukocyte Esterase 2+ H NEGATIVE Urine RBC (Auto) 5+ H NEGATIVE Urine RBC >100 H /HPF Urine WBC 5-10 H /HPF Urine Squamous Epithelial Cells 5-10 /HPF Urine Crystals NONE /LPF Urine Bacteria FEW H /HPF Urine Casts NONE /LPF Urine Mucus NEGATIVE /LPF Urine Culture Indicated YES My Orders Orders - AICHA SAWYER Cbc With Automated Diff (05/18/18 02:02) Comprehensive Metabolic Panel (05/18/18 02:02) Hs C Reactive Protein (05/18/18 02:02) Magnesium (05/18/18 02:02) Ua Culture If Indicated (05/18/18 02:02) Saline Lock/Iv-Start (05/18/18 02:02) Ns Iv 1000 Ml (Sodium Chloride 0.9%) (05/18/18 02:02) Urine Bedside (05/18/18 02:02) Ondansetron Injection (Zofran Injectio (05/18/18 02:15) Lidocaine 2% Viscous 15 Ml (Xylocaine Vi (05/18/18 02:15) Famotidine Tablet (Pepcid Tablet) (05/18/18 02:02) Antacid Suspension (Mylanta Suspension (05/18/18 02:15) Urine Culture (05/18/18 02:16) Medications Given in ED Current Medications Medications Dose Ordered Sig/Perlita Route Start Time Stop Time Status Last Admin Dose Admin Al Hydrox/Mg Hydrox/Simethicone 30 ml ONCE ONCE PO 05/18/18 02:15 05/18/18 02:16 DC 05/18/18 02:22 30 ML Lidocaine HCl 15 ml ONCE ONCE PO 05/18/18 02:15 05/18/18 02:16 DC 05/18/18 02:22 15 ML Ondansetron HCl 4 mg ONCE ONCE IVP 05/18/18 02:15 05/18/18 02:16 DC 05/18/18 02:21 4 MG Vital Signs/I&O 05/18/18 01:37 Temp 97.6 Pulse 72 Resp 16 B/P (MAP) 106/71 (83) Pulse Ox 72 O2 Delivery Room Air Blood Pressure Mean: 83 Progress Progress Note #1: Time: 02:24 Progress Note Plan to give her a liter fluids check a magnesium, basic labs urinalysis and hCG. We'll give her a GI cocktail and Pepcid see if that helps her pain and some Zofran for the nausea. Progress Note #2: Time: 02:59 Progress Note Her fluid boluses done in her vital signs are remained unchanged. Her pain persists despite the GI cocktail which she did not feel it helped. Her nausea is gone. We have discussed conservative management of symptoms and follow up outpatient with primary care versus doing a CT scan of her abdomen. Her belly is not very impressive and her labs despite a minimal elevation of the white blood cells is fairly unremarkable. She has decided to go ahead and just treat the symptoms and will give her some Toradol before she leaves. We've encouraged her to make an appointment Monday or Monday with her primary care doctor. We have given her strict return precautions. Departure Impression Primary Impression: Gastroenteritis Disposition: 01 HOME, SELF-CARE Condition: Improved Departure-Patient Inst. Decision time for Depature: 03:00 Referrals: ALEJANDRA ACUÑA MD (PCP/Family) Primary Care Physician Patient Instructions: [id number] Add. Discharge Instructions: Use the Zofran 1 tablet every 6 hours as needed for nausea or vomiting. Start with a liquid diet and advance that towards a regular diet as tolerated. Today call your primary care doctor and request an appointment for Monday or Monday. Return to the ER if you begin to have fevers or other severe symptoms. All discharge instructions reviewed with patient and/or family. Voiced understanding. Scripts Ondansetron (Ondansetron Odt) 4 Mg Tab.rapdis 4 MG PO Q6H PRN for NAUSEA/VOMITING, #8 TAB 0 Refills Prov: AICHA SAWYER 05/18/18 Copy Copies To 1: ALEJANDRA ACUÑA MD, TITUS J May 18, 2018 02:19
[2018-05-18 02:22] LABS: BILIRUBIN,URINE NEGATIVE (NEGATIVE); CLARITY,URINE BLOODY; COLOR,URINE RED; GLUCOSE, URINE (UA) NEGATIVE (NEGATIVE); KETONES,URINE NEGATIVE (NEGATIVE); LEUKOCYTE ESTERASE ,URINE 2+ (NEGATIVE); NITRITE,URINE NEGATIVE (NEGATIVE); PH,URINE 7 (5-9); PROTEIN,URINE 2+ (NEGATIVE); UROBILINOGEN,URINE 1 MG/DL (NORMAL)
[2018-05-18 02:25] LABS: ALANINE AMINOTRANSFERASE 26 U/L (0-55); ALBUMIN 4.9 GM/DL (3.2-4.5); ALKALINE PHOSPHATASE 78 U/L (40-136); BILIRUBIN,TOTAL 0.7 MG/DL (0.1-1.0); BUN/CREATININE RATIO 17; CALCIUM 10.5 MG/DL (8.5-10.1); CARBON DIOXIDE 20 MMOL/L (21-32); CHLORIDE 105 MMOL/L (98-107); CREATININE SERUM 0.82 MG/DL (0.60-1.30); GFR ESTIMATED > 60; GLUCOSE 157 MG/DL (70-105); MAGNESIUM 2.3 MG/DL (1.8-2.4); SODIUM 138 MMOL/L (135-145); TOTAL PROTEIN 8.5 GM/DL (6.4-8.2)
[2018-05-18 02:38] LABS: BACTERIA,URINE FEW /HPF; RBC,URINE >100 /HPF
[2018-05-18] MEDS ORDERED: KETOROLAC 30 MG/ML VIAL IVP ONE (03:00)
[2018-05-18] MEDS ORDERED: ONDA4TAB11 PO (03:03)
[2018-05-18] MEDS ORDERED: RX-ONDANSETRON 4 MG ODT (ZOFRAN) PPK #4 PO STA (03:04)
[2018-05-18 03:17] VITALS: BP 111/68
== END 2018-05-18 03:20 | disposition home or self-care (01) ==
LOC: EDUNIT# 00:33 → ER 00:33
DX: K52.9 Noninfective gastroenteritis and colitis, unspecified (principal); Z97.5 Presence of (intrauterine) contraceptive device
CPT/HCPCS: 36415; 80053; 81000; 83735; 84703; 85025; 86141; 87088; 96361; 96374; 96375

== ENCOUNTER 2021-01-16 11:19 | Emergency (ER) | payer OTHER ==
[~2021-01-16] VITALS: Ht 165.1 cm; Wt 95.3 kg
[~2021-01-16 11:19] MED LIST changes: +ACHD5005 PO; -HYDR-3812 PO
[2021-01-16 11:26] VITALS: BP 118/72
[2021-01-16] MEDS ORDERED: diphenhydrAMINE 25 MG TAB (BENADRYL) PO ONE (11:45)
[2021-01-16] MEDS ORDERED: KETOROLAC 30 MG/ML VIAL IM ONE (11:45)
--- NOTE | 2021-01-16 11:50 | ED Integumentary General ---
General Chief Complaint: Bite-Animal/Human/Insect Stated Complaint: WASP STING L CALF/REDNESS Nursing Triage Note: PT ARRIVED BY PRIVATE VEHICLE WITH CHIEF COMPLAINT OF WASP BITE. PT WAS ALERT, ORIENTED X 4 AND AMBULATORY. PT'S SIGNIFICANT OTHER STATED THAT SHE GOT STUNG BY A WASP ON MONDAY AT 1300. PT WAS STUNG ON LEFT CALF WHICH NOW HAS REDNESS AND SWOLLEN. PT'S VITALS WERE TAKEN ON ARRIVAL. PT'S SIGNIFICANT OTHER IS TRANSLATING FOR PT DUE TO SPEAKING NIGERIAN. REPORT GIVEN TO PROVIDER. Source: patient Exam Limitations: no limitations (MEGHAN ISRAEL APRN) History of Present Illness Date Seen by Provider: Jan 16, 2021 Time Seen by Provider: 11:47 Initial Comments Patient was stung by a wasp on Monday of this week at 1:30 PM. Since then she has had ongoing pain at the site. No systemic symptoms. Timing/Duration: constant Severity: moderate Associated Symptoms: rash (MEGHAN ISRAEL APRN) Allergies and Home Medications Allergies Coded Allergies: No Known Drug Allergies (Unverified , 09/23/15) Home Medications Cephalexin 500 Mg Capsule, 500 MG PO QID Prescribed by: GENOVEVA MONTEMAYOR on 07/30/17 1401 Hydrocodone Bit/Acetaminophen 1 Each Tablet, 1 EACH PO Q6H PRN for PAIN-MODERATE TO SEVERE Prescribed by: GENOVEVA MONTEMAYOR on 07/30/17 1409 Omeprazole 20 Mg Tablet.dr, 20 MG PO BID Prescribed by: GENOVEVA MONTEMAYOR on 07/30/17 1401 Ondansetron 4 Mg Tab.rapdis, 4 MG PO Q6H PRN for NAUSEA/VOMITING Prescribed by: AICHA SAWYER on 05/18/18 0303 Patient Home Medication List Home Medication List Reviewed: Yes (MEGHAN ISRAEL APRN) Review of Systems Review of Systems Constitutional: see HPI EENTM: see HPI Respiratory: no symptoms reported Cardiovascular: no symptoms reported Genitourinary: no symptoms reported Musculoskeletal: no symptoms reported Skin: see HPI Psychiatric/Neurological: No Symptoms Reported Endocrine: No Symptoms Reported Hematologic/Lymphatic: No Symptoms Reported (MEGHAN ISRAEL APRN) Past Zrzjwyp-Cwpkqs-Bnznwk Hx Patient Social History Tobacco Use?: No Substance use?: No Alcohol Use?: No Pt feels they are or have been: No (MEGHAN ISRAEL APRN) Immunizations Up To Date Tetanus Booster (TDap): More than 5yrs PED Vaccines UTD: Yes (MEGHAN ISRAEL APRN) Seasonal Allergies Seasonal Allergies: No (MEGHAN ISRAEL APRN) Past Medical History Surgeries: Yes ( control implant left upper arm) Respiratory: No Cardiac: No Neurological: No Reproductive Disorders: No Female Reproductive Disorders: Denies Sexually Transmitted Disease: No HIV/AIDS: No Genitourinary: No Gastrointestinal: No Musculoskeletal: No Endocrine: No HEENT: No Loss of Vision: Denies Hearing Impairment: Denies Cancer: No Psychosocial: No Integumentary: No Blood Disorders: No Adverse Reaction/Blood Tranf: No (MEGHAN ISRAEL APRN) Family Medical History Patient reports no known family medical history. No Pertinent Family Hx (MEGHAN ISRAEL APRN) Physical Exam Vital Signs Vital Signs - First Documented 01/16/21 11:26 Temp 36.4 Pulse 71 Resp 16 B/P (MAP) 118/72 (87) Pulse Ox 98 O2 Delivery Room Air (GENOVEVA SUTHERLAND MD) Vital Signs Capillary Refill : Less Than 3 Seconds (MEGHAN ISRAEL APRN) General Appearance: WD/WN, no apparent distress HEENT: PERRL/EOMI, normal ENT inspection Neck: non-tender, full range of motion Respiratory: no respiratory distress, no accessory muscle use Extremities: normal range of motion, non-tender Neurologic/Psychiatric: alert, normal mood/affect, oriented x 3 Skin: normal color, warm/dry Skin Problem Character: other (There is a quarter sized area of petechial rash to the posteromedial left calf. Surrounding this is about a 10 cm area of edema and very slight erythema.) (MEGHAN ISRAEL APRN) Progress/Results/Core Measures Results/Orders Vital Signs/I&O 01/16/21 11:26 Temp 36.4 Pulse 71 Resp 16 B/P (MAP) 118/72 (87) Pulse Ox 98 O2 Delivery Room Air (GENOVEVA SUTHERLAND MD) Blood Pressure Mean: 87 Departure Impression Primary Impression: Sting, wasp Disposition: 01 HOME, SELF-CARE Condition: Stable Departure-Patient Inst. Decision time for Depature: 11:49 (MEGHAN ISRAEL APRN) Referrals: [facility] (PCP/Family) Primary Care Physician Patient Instructions: Insect Bites and Stings ED Add. Discharge Instructions: Ice pack to the area 30 minutes at a time several times a day. Ibuprofen for pain. Benadryl as needed for itching. All discharge instructions reviewed with patient and/or family. Voiced understanding. ATTENDING PHYSICIAN NOTE: I was physically present as attending physician in the emergency department during the care of this patient, but I was not directly involved in the decision making or delivery of care for this patient. (GENOVEVA SUTHERLAND MD) MEGHAN ISRAEL APRN Jan 16, 2021 11:50 GENOVEVA SUTHERLAND MD Jan 17, 2021 06:29
== END 2021-01-16 12:10 | disposition home or self-care (01) ==
LOC: EDUNIT# 11:19 → ER 11:21
DX: T63.461A Toxic effect of venom of wasps, accidental (unintentional), initial encounter (principal)
CPT/HCPCS: 99284

== ENCOUNTER 2022-06-09 16:47 | Emergency (ER) | payer OTHER ==
[~2022-06-09] VITALS: Ht 170 cm; Wt 99.0 kg
[~2022-06-09 16:47] MED LIST changes: +OMEP20TA56 PO; -OMEP20TA7 PO
[2022-06-09 16:57] VITALS: BP 121/77
[2022-06-09 17:51] LABS: BASOPHILS % (AUTO) 0 % (0-10); BILIRUBIN,URINE NEGATIVE (NEGATIVE); CLARITY,URINE CLEAR; COLOR,URINE YELLOW; EOSINOPHILS % (AUTO) 0 % (0-10); GLUCOSE, URINE (UA) NEGATIVE (NEGATIVE); HEMATOCRIT 41 % (35-52); HEMOGLOBIN 13.6 g/dL (11.5-16.0); KETONES,URINE NEGATIVE (NEGATIVE); LEUKOCYTE ESTERASE ,URINE TRACE (NEGATIVE); LYMPHOCYTES # (AUTO) 1.1 10^3/uL (1.0-4.0); LYMPHOCYTES % (AUTO) 18 % (12-44); MEAN CORPUSCULAR HEMOGLOBIN 30 pg (25-34); MEAN CORPUSCULAR HGB CONC 34 g/dL (32-36); MEAN CORPUSCULAR VOLUME 90 fL (80-99); MEAN PLATELET VOLUME 10.6 fL (9.0-12.2); MONOCYTES # (AUTO) 0.8 10^3/uL (0.0-1.0); MONOCYTES % (AUTO) 12 % (0-12); NEUTROPHILS # (AUTO) 4.3 10^3/uL (1.8-7.8); NEUTROPHILS % (AUTO) 69 % (42-75); NITRITE,URINE NEGATIVE (NEGATIVE); PLATELET COUNT 272 10^3/uL (130-400); PROTEIN,URINE NEGATIVE (NEGATIVE); WHITE BLOOD COUNT 6.3 10^3/uL (4.3-11.0)
[2022-06-09 17:58] LABS: BACTERIA,URINE TRACE /HPF; RBC,URINE 0-2 /HPF; SQUAMOUS EPITHELIAL CELL,UR 0-2 /HPF
--- NOTE | 2022-06-09 18:32 | ED GU-Female ---
General Chief Complaint: OB < 20 WEEKS Stated Complaint: , VAGINAL BLEEDING Nursing Triage Note: PT REPORTS TO ED WITH SOME BLOOD WHEN WIPING. BLOOD IS ONLY NOTED WHEN WIPING. PT IS ABOUT EIGHT WEEKS . DENIES KNOWN INJURY. PER PT SHE NOTICED A PINK COLOR WHEN WIPING LAST WEEK WITH PELVIC PAIN THAT ONLY LASTED ABOUT A DAY. DENIES PELVIC PAIN AT THIS TIME. C/O 'WAIST' PAIN. DENIES DYSURIA. PT AMB. TO ROOM 05 WITH SPOUSE AT BEDSIDE. ROOMED BY GUSTAVO ALVARADO. Source: patient, admin prog coord Exam Limitations: language barrier History of Present Illness Date Seen by Provider: Jun 09, 2022 Time Seen by Provider: 17:14 Allergies and Home Medications Allergies Coded Allergies: No Known Drug Allergies (Unverified , 09/23/15) Patient Home Medication List Cephalexin (Keflex) 500 Mg Capsule, 500 MG PO QID Prescribed by: GENOVEVA MONTEMAYOR on 07/30/17 1401 Hydrocodone Bit/Acetaminophen (Lortab 5 Mg Tablet) 1 Each Tablet, 1 EACH PO Q6H PRN for PAIN-MODERATE TO SEVERE Prescribed by: GENOVEVA MONTEMAYOR on 07/30/17 1409 Omeprazole (Omeprazole) 20 Mg Tablet.dr, 20 MG PO BID Prescribed by: GENOVEVA MONTEMAYOR on 07/30/17 1401 Ondansetron (Ondansetron Odt) 4 Mg Tab.rapdis, 4 MG PO Q6H PRN for NAUSEA/VOMITING Prescribed by: AICHA SAWYER on 05/18/18 0303 Review of Systems Review of Systems Expected Date of Delivery: Jan 15, 2022 Past Qckpphy-Sbzbzg-Mcwvhv Hx Patient Social History Tobacco Use?: No Substance use?: No Alcohol Use?: No Pt feels they are or have been: No Immunizations Up To Date Tetanus Booster (TDap): More than 5yrs PED Vaccines UTD: Yes COVID19 Vaccine Founder / Ceo: MODERNA Seasonal Allergies Seasonal Allergies: No Past Medical History Surgery/Hospitalization HX: DENIES MED. HX AND SURGERY. Surgeries: Yes ( control implant left upper arm) Respiratory: No Cardiac: No Neurological: No Expected Date of Delivery: Jan 15, 2022 Last Menstrual Period: Apr 10, 2022 Reproductive Disorders: No Female Reproductive Disorders: Denies Sexually Transmitted Disease: No HIV/AIDS: No Genitourinary: No Gastrointestinal: No Musculoskeletal: No Endocrine: No HEENT: No Loss of Vision: Denies Hearing Impairment: Denies Cancer: No Psychosocial: No Integumentary: No Blood Disorders: No Adverse Reaction/Blood Tranf: No Family Medical History Patient reports no known family medical history. No Pertinent Family Hx Physical Exam Vital Signs Vital Signs - First Documented 06/09/22 16:57 Temp 37.4 Pulse 108 Resp 20 B/P (MAP) 121/77 (92) Pulse Ox 97 O2 Delivery Room Air Capillary Refill : Less Than 3 Seconds Height, Weight, BMI Height: 5'5.00" Weight: 160lbs. oz. 72.644706uh; 34.00 BMI Method:Stated Progress/Results/Core Measures Suspected Sepsis SIRS Temperature: Pulse: 108 Respiratory Rate: 20 Laboratory Tests 06/09/22 17:40: White Blood Count 6.3 Blood Pressure 121 /77 Mean: 92 Laboratory Tests 06/09/22 17:40: Platelet Count 272 Results/Orders Lab Results Laboratory Tests Test 06/09/22 17:40 Range/Units White Blood Count 6.3 4.3-11.0 10^3/uL Red Blood Count 4.52 3.80-5.11 10^6/uL Hemoglobin 13.6 11.5-16.0 g/dL Hematocrit 41 35-52 % Mean Corpuscular Volume 90 80-99 fL Mean Corpuscular Hemoglobin 30 25-34 pg Mean Corpuscular Hemoglobin Concent 34 32-36 g/dL Red Cell Distribution Width 12.4 10.0-14.5 % Platelet Count 272 130-400 10^3/uL Mean Platelet Volume 10.6 9.0-12.2 fL Immature Granulocyte % (Auto) 1 % Neutrophils (%) (Auto) 69 42-75 % Lymphocytes (%) (Auto) 18 12-44 % Monocytes (%) (Auto) 12 0-12 % Eosinophils (%) (Auto) 0 0-10 % Basophils (%) (Auto) 0 0-10 % Neutrophils # (Auto) 4.3 1.8-7.8 10^3/uL Lymphocytes # (Auto) 1.1 1.0-4.0 10^3/uL Monocytes # (Auto) 0.8 0.0-1.0 10^3/uL Eosinophils # (Auto) 0.0 0.0-0.3 10^3/uL Basophils # (Auto) 0.0 0.0-0.1 10^3/uL Immature Granulocyte # (Auto) 0.0 0.0-0.1 10^3/uL Urine Color YELLOW Urine Clarity CLEAR Urine pH 6.0 5-9 Urine Specific [place] 1.010 L 1.016-1.022 Urine Protein NEGATIVE NEGATIVE Urine Glucose (UA) NEGATIVE NEGATIVE Urine Ketones NEGATIVE NEGATIVE Urine Nitrite NEGATIVE NEGATIVE Urine Bilirubin NEGATIVE NEGATIVE Urine Urobilinogen 0.2 < = 1.0 MG/DL Urine Leukocyte Esterase TRACE H NEGATIVE Urine RBC (Auto) 1+ H NEGATIVE Urine RBC 0-2 /HPF Urine WBC 2-5 /HPF Urine Squamous Epithelial Cells 0-2 /HPF Urine Crystals NONE /LPF Urine Bacteria TRACE /HPF Urine Casts NONE /LPF Urine Mucus NEGATIVE /LPF Urine Culture Indicated YES Human Chorionic Gonadotropin, Quant 03255 H <5 MIU/ML My Orders Orders - GENOVEVA SUTHERLAND MD Cbc With Automated Diff (06/09/22 17:14) Hcg,Quantitative (06/09/22 17:14) Ua Culture If Indicated (06/09/22 17:14) Urine Culture (06/09/22 17:40) Vital Signs/I&O 06/09/22 16:57 Temp 37.4 Pulse 108 Resp 20 B/P (MAP) 121/77 (92) Pulse Ox 97 O2 Delivery Room Air Capillary Refill : Less Than 3 Seconds Blood Pressure Mean: 92 Departure Impression Primary Impression: Vaginal bleeding during Disposition: 01 HOME, SELF-CARE Condition: Stable Departure-Patient Inst. Decision time for Depature: 18:30 Referrals: EBONI MCNEILL DO (PCP/Family) Primary Care Physician Patient Instructions: Bleeding in Early ED Add. Discharge Instructions: Please contact Dr. HURD's office tomorrow morning. If you are unable to speak with someone at Dr. HURD's office, please bring your order form for a hormone level back to the hospital on Monday or Monday. This will allow Dr. HURD to monitor your hormone levels. Observe vaginal rest, meaning nothing in the vagina including intercourse or use of tampons. Continue vaginal rest until you are otherwise instructed by Dr. HURD. Return to the emergency room if you have worsening symptoms or if you develop new symptoms such as pelvic pain, fevers, or significant worsening of bleeding. All discharge instructions reviewed with patient and/or family. Voiced understanding. Copy Copies To 1: JILLIAN HURD JOSHUA T MD Jun 09, 2022 18:32
== END 2022-06-09 19:00 | disposition home or self-care (01) ==
LOC: EDUNIT# 16:47 → ER 16:50
DX: O20.9 Hemorrhage in early pregnancy, unspecified (principal); Z3A.00 Weeks of gestation of pregnancy not specified
CPT/HCPCS: 36415; 81000; 84702; 84703; 85025; 87088

== ENCOUNTER 2022-07-11 21:11 | Emergency (ER) | payer OTHER ==
[~2022-07-11] VITALS: Ht 170.2 cm; Wt 99.3 kg
[2022-07-11 22:08] LABS: BASOPHILS % (AUTO) 0 % (0-10); EOSINOPHILS # (AUTO) 0.2 10^3/uL (0.0-0.3); EOSINOPHILS % (AUTO) 2 % (0-10); HEMATOCRIT 39 % (35-52); HEMOGLOBIN 12.9 g/dL (11.5-16.0); LYMPHOCYTES % (AUTO) 20 % (12-44); MEAN CORPUSCULAR HEMOGLOBIN 30 pg (25-34); MEAN CORPUSCULAR HGB CONC 33 g/dL (32-36); MEAN CORPUSCULAR VOLUME 90 fL (80-99); MEAN PLATELET VOLUME 10.3 fL (9.0-12.2); MONOCYTES # (AUTO) 0.7 10^3/uL (0.0-1.0); MONOCYTES % (AUTO) 7 % (0-12); NEUTROPHILS % (AUTO) 70 % (42-75); PLATELET COUNT 311 10^3/uL (130-400)
[2022-07-11 22:22] LABS: BILIRUBIN,URINE NEGATIVE (NEGATIVE); CLARITY,URINE CLOUDY; COLOR,URINE YELLOW; GLUCOSE, URINE (UA) NEGATIVE (NEGATIVE); KETONES,URINE NEGATIVE (NEGATIVE); LEUKOCYTE ESTERASE ,URINE 1+ (NEGATIVE); NITRITE,URINE NEGATIVE (NEGATIVE); PH,URINE 6.5 (5-9); PROTEIN,URINE TRACE (NEGATIVE)
[2022-07-11 22:31] LABS: BACTERIA,URINE FEW /HPF; RBC,URINE TNTC /HPF
[2022-07-12] MEDS ORDERED: CEPHALEXIN 250 MG (KEFLEX) CAP PO STA (01:22)
--- NOTE | 2022-07-12 01:22 | ED GU-Female ---
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 PT C/O LOWER ABD CRAMPING AND VAG BLEEDING SX 07/05/22 WORSE TODAY. PT REPORTS SHE'S APPROX 12 WKS , A&OX4. Source: patient, family, licensed psychologist director Exam Limitations: language barrier History of Present Illness Date Seen by Provider: Jul 11, 2022 Time Seen by Provider: 21:47 Initial Comments This 31-year-old woman at approximately 32 weeks gestational age presents to the emergency room requesting an hCG level as was ordered a month ago for follow-up on a prior ER visit. Patient was declined this outpatient lab as it was s upposed to be done a month ago. She checked into the ER complaining of vaginal bleeding and pelvic cramping for the past 4 days. She reports being seen by Dr. HURD after her last ER visit. She reports that a normal ultrasound was performed. She gives history of prior vaginal infection which she thinks was trichomonas. She states no pelvic exam has been performed during this yet. Allergies and Home Medications Allergies Coded Allergies: No Known Drug Allergies (Unverified , 09/23/15) Patient Home Medication List Home Medication List Reviewed: Yes Cephalexin (Keflex) 500 Mg Capsule, 500 MG PO QID Prescribed by: GENOVEVA MONTEMAYOR on 07/30/17 1401 Cephalexin (Cephalexin) 500 Mg Tablet, 500 MG PO TID Prescribed by: GENOVEVA MONTEMAYOR on 07/12/22 0127 Hydrocodone Bit/Acetaminophen (Lortab 5 Mg Tablet) 1 Each Tablet, 1 EACH PO Q6H PRN for PAIN-MODERATE TO SEVERE Prescribed by: GENOVEVA MONTEMAYOR on 07/30/17 1409 Omeprazole (Omeprazole) 20 Mg Tablet.dr, 20 MG PO BID Prescribed by: GENOVEVA MONTEMAYOR on 07/30/17 1401 Ondansetron (Ondansetron Odt) 4 Mg Tab.rapdis, 4 MG PO Q6H PRN for NAUSEA/VOMITING Prescribed by: AICHA SAWYER on 05/18/18 0303 Review of Systems Review of Systems Constitutional: no symptoms reported EENTM: no symptoms reported Respiratory: no symptoms reported Cardiovascular: no symptoms reported Gastrointestinal: see HPI Genitourinary: see HPI : Yes Expected Date of Delivery: Jan 15, 2023 Musculoskeletal: no symptoms reported Skin: no symptoms reported Psychiatric/Neurological: No Symptoms Reported Endocrine: No Symptoms Reported Past Udxhaao-Ijgvad-Yxjkef Hx Patient Social History Tobacco Use?: No Use of E-Cig and/or Vaping dev: No Substance use?: No Alcohol Use?: No Immunizations Up To Date Tetanus Booster (TDap): More than 5yrs PED Vaccines UTD: Yes Influenza Vaccine Up-to-Date: No; Not Current First/Initial COVID19 Vaccinat: 2020 Second COVID19 Vaccination Melchor: 2020 Third COVID19 Vaccination Date: none COVID19 Vaccine Cotton Picker: unk x2 Seasonal Allergies Seasonal Allergies: No Past Medical History Surgery/Hospitalization HX: DENIES MED. HX AND SURGERY. Surgeries: Yes ( control implant left upper arm) Respiratory: No Cardiac: No Neurological: No Expected Date of Delivery: Jan 15, 2023 Reproductive Disorders: No Female Reproductive Disorders: Denies Sexually Transmitted Disease: No HIV/AIDS: No Genitourinary: No Gastrointestinal: No Musculoskeletal: No Endocrine: No HEENT: No Loss of Vision: Denies Hearing Impairment: Denies Cancer: No Psychosocial: No Integumentary: No Blood Disorders: No Adverse Reaction/Blood Tranf: No Family Medical History Patient reports no known family medical history. No Pertinent Family Hx Physical Exam Vital Signs Vital Signs - First Documented 07/11/22 21:21 Temp 36.2 Pulse 87 Resp 20 B/P (MAP) 122/76 (91) Pulse Ox 100 O2 Delivery Room Air Capillary Refill : Less Than 3 Seconds Height, Weight, BMI Height: 5'5.00" Weight: 160lbs. oz. 72.075001am; 34.00 BMI Method:Stated General Appearance: WD/WN, no apparent distress HEENT: normal ENT inspection Neck: normal inspection Cardiovascular: regular rate, rhythm, no edema, no murmur Respiratory: lungs clear, normal breath sounds, no respiratory distress Gastrointestinal: non tender, soft Extremities: normal inspection, no pedal edema Neurologic/Psychiatric: no motor/sensory deficits, alert, normal mood/affect, oriented x 3 Skin: normal color, warm/dry Progress/Results/Core Measures Suspected Sepsis SIRS Temperature: Pulse: 87 Respiratory Rate: 20 Laboratory Tests 07/11/22 21:50: White Blood Count 10.0 Blood Pressure 122 /76 Mean: 91 Laboratory Tests 07/11/22 21:50: Platelet Count 311 Results/Orders Lab Results Laboratory Tests Test 07/11/22 21:15 07/11/22 21:50 Range/Units Urine Color YELLOW Urine Clarity CLOUDY Urine pH 6.5 5-9 Urine Specific [place] 1.020 1.016-1.022 Urine Protein TRACE H NEGATIVE Urine Glucose (UA) NEGATIVE NEGATIVE Urine Ketones NEGATIVE NEGATIVE Urine Nitrite NEGATIVE NEGATIVE Urine Bilirubin NEGATIVE NEGATIVE Urine Urobilinogen 0.2 < = 1.0 MG/DL Urine Leukocyte Esterase 1+ H NEGATIVE Urine RBC (Auto) 3+ H NEGATIVE Urine RBC TNTC H /HPF Urine WBC 5-10 H /HPF Urine Squamous Epithelial Cells 2-5 /HPF Urine Crystals NONE /LPF Urine Bacteria FEW H /HPF Urine Casts NONE /LPF Urine Mucus NEGATIVE /LPF Urine Culture Indicated YES White Blood Count 10.0 4.3-11.0 10^3/uL Red Blood Count 4.33 3.80-5.11 10^6/uL Hemoglobin 12.9 11.5-16.0 g/dL Hematocrit 39 35-52 % Mean Corpuscular Volume 90 80-99 fL Mean Corpuscular Hemoglobin 30 25-34 pg Mean Corpuscular Hemoglobin Concent 33 32-36 g/dL Red Cell Distribution Width 12.1 10.0-14.5 % Platelet Count 311 130-400 10^3/uL Mean Platelet Volume 10.3 9.0-12.2 fL Immature Granulocyte % (Auto) 1 % Neutrophils (%) (Auto) 70 42-75 % Lymphocytes (%) (Auto) 20 12-44 % Monocytes (%) (Auto) 7 0-12 % Eosinophils (%) (Auto) 2 0-10 % Basophils (%) (Auto) 0 0-10 % Neutrophils # (Auto) 7.0 1.8-7.8 10^3/uL Lymphocytes # (Auto) 2.0 1.0-4.0 10^3/uL Monocytes # (Auto) 0.7 0.0-1.0 10^3/uL Eosinophils # (Auto) 0.2 0.0-0.3 10^3/uL Basophils # (Auto) 0.0 0.0-0.1 10^3/uL Immature Granulocyte # (Auto) 0.1 0.0-0.1 10^3/uL Human Chorionic Gonadotropin, Quant 3500 H <5 MIU/ML My Orders Orders - GENOVEVA SUTHERLAND MD Ua Culture If Indicated (07/11/22 21:47) Cbc With Automated Diff (07/11/22 21:47) Hcg,Quantitative (07/11/22 21:47) Urine Culture (07/11/22 21:15) Cephalexin Capsule (Keflex Capsule) (07/12/22 01:22) Vital Signs/I&O 07/11/22 07/12/22 21:21 01:38 Temp 36.2 Pulse 87 83 Resp 20 20 B/P (MAP) 122/76 (91) 125/83 Pulse Ox 100 100 O2 Delivery Room Air Room Air Capillary Refill : Less Than 3 Seconds Blood Pressure Mean: 91 Progress Note : Progress Note Unfortunately, hCG level dropped from about 12,000 a month ago to 3500 today. No heart tones could be found with Doppler. Bedside ultrasound performed transabdominally revealed no gestational sac or heart tones within the [place]. Uterus appeared empty. Patient was advised this likely represents a miscarriage. She also appeared to have some mild pyuria which was treated with Keflex. See discharge instructions for further discussion. Dr. HURD was notified of patient's status. Departure Impression Primary Impression: Miscarriage Additional Impression: Urinary tract infection Qualified Codes: N39.0 - Urinary tract infection, site not specified; R31.9 - Hematuria, unspecified Disposition: 01 HOME, SELF-CARE Condition: Stable Departure-Patient Inst. Decision time for Depature: 01:22 Referrals: EBONI MCNEILL DO (PCP/Family) Primary Care Physician Patient Instructions: Coping After Loss, Loss (Miscarriage) ED, Urinary Tract Infection, Adult ED Add. Discharge Instructions: Your hormone level has dropped significantly and steadily increasing. Additionally, no heartbeat was seen on bedside ultrasound or heard on Doppler. This likely means you are experiencing a miscarriage. Please follow-up with Dr. HURD first thing this morning when the clinic opens for further instructions and to let him know how you are doing. You may use Tylenol (acetaminophen) up to 1000 mg every 6 hours as needed for pain. For severe pain you may also add ibuprofen up to 600 mg every 6 hours as needed. Return to the emergency room if you have worsening symptoms such as severe pain, fever, vomiting, etc. There was also some suggestion of possible bladder infection. Please complete antibiotics as prescribed. All discharge instructions reviewed with patient and/or family. Voiced understanding. Scripts Cephalexin (Cephalexin) 500 Mg Tablet 500 MG PO TID, #20 TAB Prov: GENOVEVA SUTHERLAND MD 07/12/22 GENOVEVA SUTHERLAND MD Jul 12, 2022 01:22
[2022-07-12] MEDS ORDERED: CEPH500T PO (01:27)
[2022-07-12 01:38] VITALS: BP 125/83
== END 2022-07-12 01:38 | disposition home or self-care (01) ==
LOC: EDUNIT# 21:11 → ER 21:16
DX: O03.9 Complete or unspecified spontaneous abortion without complication (principal); N39.0 Urinary tract infection, site not specified
CPT/HCPCS: 36415; 81000; 84702; 85025; 87077; 87088; 99283

== ENCOUNTER 2023-03-05 21:05 | Emergency (ER) | payer OTHER ==
[~2023-03-05] VITALS: Ht 165.1 cm; Wt 104.3 kg
[~2023-03-05 21:05] MED LIST changes: +CEPH500T PO
--- NOTE | 2023-03-05 21:37 | ED Lower Extremity ---
General Chief Complaint: Trauma-Non Activation Stated Complaint: INJ LEFT FOOT/9 WEEKS Nursing Triage Note: SEE TRIAGE Source: patient Exam Limitations: no limitations (TRAN ROE APRN) History of Present Illness Date Seen by Provider: Mar 05, 2023 Time Seen by Provider: 21:24 Initial Comments 32-year-old Swedish-speaking female presents to the ER with a left ankle injury. States that she was walking down the stairs and fell over the last step twisting her left ankle. She landed on her right knee as well. Abrasion noted to right knee and lower leg. She is only complaining of pain in the left ankle. Denies pain with movement of the right knee. She is currently 9 weeks . (TRAN ROE APRN) Allergies and Home Medications Allergies Coded Allergies: No Known Drug Allergies (Unverified , 09/23/15) Patient Home Medication List Home Medication List Reviewed: Yes (TRAN ROE APRN) Cephalexin (Keflex) 500 Mg Capsule, 500 MG PO QID Prescribed by: GENOVEVA MONTEMAYOR on 07/30/17 1401 Cephalexin (Cephalexin) 500 Mg Tablet, 500 MG PO TID Prescribed by: GENOVEVA MONTEMAYOR on 07/12/22 0127 Hydrocodone Bit/Acetaminophen (Lortab 5 Mg Tablet) 1 Each Tablet, 1 EACH PO Q6H PRN for PAIN-MODERATE TO SEVERE Prescribed by: GENOVEVA MONTEMAYOR on 07/30/17 1409 Omeprazole (Omeprazole) 20 Mg Tablet.dr, 20 MG PO BID Prescribed by: GENOVEVA MONTEMAYOR on 07/30/17 1401 Ondansetron (Ondansetron Odt) 4 Mg Tab.rapdis, 4 MG PO Q6H PRN for NAUSEA/VOMITING Prescribed by: AICHA SAWYER on 05/18/18 0303 Review of Systems Constitutional: see HPI (TRAN ROE APRN) Past Izgshyh-Lygsdt-Vzzzxq Hx Patient Social History Tobacco Use?: No Substance use?: No Alcohol Use?: No Pt feels they are or have been: No (TRAN ROE APRN) Immunizations Up To Date Tetanus Booster (TDap): More than 5yrs PED Vaccines UTD: Yes First/Initial COVID19 Vaccinat: 2020 Second COVID19 Vaccination Melchor: 2020 Third COVID19 Vaccination Date: none (TRAN ROE APRN) Seasonal Allergies Seasonal Allergies: No (TRAN ROE APRN) Past Medical History Surgery/Hospitalization HX: DENIES MED. HX AND SURGERY. Surgeries: Yes ( control implant left upper arm) Respiratory: No Cardiac: No Neurological: No Reproductive Disorders: No Female Reproductive Disorders: Denies Sexually Transmitted Disease: No HIV/AIDS: No Genitourinary: No Gastrointestinal: No Musculoskeletal: No Endocrine: No HEENT: No Loss of Vision: Denies Hearing Impairment: Denies Cancer: No Psychosocial: No Integumentary: No Blood Disorders: No Adverse Reaction/Blood Tranf: No (TRAN ROE APRN) Family Medical History Patient reports no known family medical history. No Pertinent Family Hx (TRAN ROE APRN) Physical Exam Vital Signs Vital Signs - First Documented 03/05/23 21:15 Pulse 87 Resp 18 B/P (MAP) 122/82 (95) Pulse Ox 100 O2 Delivery Room Air (GENOVEVA SUTHERLAND MD) Vital Signs Capillary Refill : (TRAN ROE APRN) Height, Weight, BMI Height: 5'5.00" Weight: 160lbs. oz. 72.370450tb; 34.00 BMI Method:Stated General Appearance: WD/WN, no apparent distress Neck: supple, normal inspection Cardiovascular: regular rate, rhythm Respiratory: lungs clear, normal breath sounds, no respiratory distress, no accessory muscle use Ankles: left ankle pain, left ankle soft tissue tenderness, left ankle swelling, left ankle other (Pulses intact, cap refill less than 2 seconds, sensation intact distally) Neurologic/Psychiatric: alert, normal mood/affect Skin: normal color, warm/dry (TRAN ROE APRN) Progress/Results/Core Measures Results/Orders Vital Signs/I&O 03/05/23 03/05/23 21:15 23:06 Pulse 87 87 Resp 18 18 B/P (MAP) 122/82 (95) 119/75 Pulse Ox 100 100 O2 Delivery Room Air Room Air (GENOVEVA SUTHERLAND MD) Progress Progress Note : Progress Note Patient seen and evaluated, resting comfortably in bed, no acute distress. Based on exam and symptoms, and according to the [place] ankle rules, patient meets criteria for x-ray of ankle. Patient has pain on in the malleolar zone and pain along the lateral malleolus and was unable to bear weight after the injury. X-ray has been ordered. 2222 x-ray reviewed by me. Negative for acute fracture. Will discharge patient with crutches and Jackson bandage. Results discussed with patient. Discharge instructions and return precautions provided. (TRAN ROE APRN) Departure Impression Primary Impression: Ankle sprain Disposition: HOME, SELF-CARE Condition: Stable Departure-Patient Inst. Decision time for Depature: 22:30 (TRAN ROE APRN) Referrals: EBONI MCNEILL DO (PCP/Family) Primary Care Physician Patient Instructions: Ankle sprain Add. Discharge Instructions: Use the crutches to keep weight off of your ankle. Wear the Jackson bandage for compression. Ice your ankle for 20 minutes at a time several times a day for the next couple days. Elevate your ankle above the level of your heart as frequently as possible You may take Tylenol as needed for pain. Return for any new, concerning, or worsening symptoms. All discharge instructions reviewed with patient and/or family. Voiced understanding. ATTENDING PHYSICIAN NOTE: I was physically present as attending physician in the emergency department during the care of this patient. Patient and family requested to speak with a physician provider regarding risk of radiation exposure with ankle x-rays during . I advised that the quantity of radiation was minimal and unlikely to cause harm to the baby, especially on a distal region of the body such as the ankle. Patient requested lead covering which was provided. I did examine the patient and found her to have significant tenderness and swelling of the ankle including both the anterior and posterior portion of the lateral malleolus and over the medial malleolus. She was not able to appropriately bear weight. I therefore recommended the x-rays. (GENOVEVA SUTHERLAND MD) TRAN ROE APRN Mar 05, 2023 21:37 GENOVEVA SUTHERLAND MD Mar 07, 2023 07:55
[2023-03-05 23:06] VITALS: BP 119/75
--- NOTE | 2023-03-06 05:53 | Diagnostic Imaging Report ---
INDICATION: Left ankle pain and swelling AP, oblique and lateral views of left ankle are obtained. FINDINGS: No acute fracture or dislocation is identified. No abnormal lytic or sclerotic focus is seen, and there is no radiopaque foreign body. IMPRESSION: No acute abnormality. Dictated by: Dictated on workstation # [id number]
== END 2023-03-05 23:06 | disposition home or self-care (01) ==
LOC: EDUNIT# 21:05 → ER 21:07
DX: O9A.211 Injury, poisoning and certain other consequences of external causes complicating pregnancy, first trimester (principal); S93.402A Sprain of unspecified ligament of left ankle, initial encounter; Z3A.09 9 weeks gestation of pregnancy; W10.9XXA Fall (on) (from) unspecified stairs and steps, initial encounter; X50.1XXA Overexertion from prolonged static or awkward postures, initial encounter; Y93.01 Activity, walking, marching and hiking
CPT/HCPCS: 73610

== ENCOUNTER → 2023-05-18 | Outpatient (CLI) | payer OTHER ==
--- NOTE | 2023-05-18 19:30 | Diagnostic Imaging Report ---
INDICATION: Supervision of normal . Anatomy scan. TECHNIQUE: Multiple real-time grayscale images were obtained over the gravid uterus. COMPARISON: None. FINDINGS: Single live intrauterine gestation is visualized in breech presentation. heart tones measure 143 BPM. The placenta is posterior and not low lying. The JUDI is normal measuring 9.3 cm. The cervix is closed and measures 4.9 cm. The kidneys, bladder, stomach, brain, nose and lips, four-chamber heart, outflow tracts, three-vessel cord, cord insertion, and spine are visualized and have a normal appearance. Views of the adnexa are unremarkable. Biometrical measurements are as follows: Biparietal 4.79 cm, age 20 weeks 4 days. Head circumference 17.68 cm, age 20 weeks 2 days. Abdominal circumference 14.88 cm, age 20 weeks 1 days. Femur length 3.27 cm, age 20 weeks 2 days. Sonographic estimate age: 20 weeks 3 days. Sonographic estimated date of delivery: 10/02/2023. Estimated Weight: 338 gm (+/- 50 gm). LMP percentile: 56%. heart rate: 143 beats per minute. number: 1 of 1. IMPRESSION: 1. Single live intrauterine gestation measuring 20 weeks 3 days with an estimated due date of 10/02/2023. These are within range with the clinical dates. 2. Unremarkable anatomy scan. No abnormalities. 3. Breech presentation. Recommend continued follow-up. Dictated by: Dictated on workstation # [id number]
== END ==
LOC: RAD 09:04
PROVIDERS: ATTEND Nurse Practitioner Women's Health
DX: Z34.02 Encounter for supervision of normal first pregnancy, second trimester (principal); Z3A.20 20 weeks gestation of pregnancy
CPT/HCPCS: 76805